=== PATIENT | female | born 1995 | race African-American/Black ===

== ENCOUNTER 2017-05-25 09:36 | Emergency (ER) | payer MEDICAID ==
[~2017-05-25] VITALS: Ht 160 cm; Wt 55.3 kg
[2017-05-25 09:38] VITALS: BP 114/73
--- NOTE | 2017-05-25 10:17 | Emergency Room Report ---
History of Present Illness General Chief Complaint: General Complaint Source: Patient Present Illness HPI Patient presents with complaints of pressure to the left fore head area patient reports that last week she had gone on a hike After that she felt that she had a headache the headache however improved and resolved however she felt some pressure lingering in the left fore head also the left parietal area Denies any focal weakness denies any vomiting denies any neck pain denies any chest pain or shortness of breath denies any new medication patient has seen an shopper's aide yesterday And also saw his primary physician last week she also has blood test obtained and waiting for results on Sunday Allergies: Coded Allergies: NO KNOWN ALLERGIES (Unverified Allergy, Unknown, 04/24/15) Patient History Past Medical History: see triage record Pertinent Family History: none Now: No Reviewed Nursing Documentation: PMH: Agreed, PSxH: Agreed Nursing Documentation-PMH Past Medical History: No Stated History Hx Neurological Problems: Yes - Eczema Review of Systems All Other Systems: negative except mentioned in HPI Physical Exam Vital Signs Date Time Temp Pulse Resp B/P (MAP) Pulse Ox O2 Delivery O2 Flow Rate FiO2 05/25/17 09:38 97.3 83 20 114/73 99 Room Air Sp02 EP Interpretation: reviewed, normal General Appearance: well appearing, no apparent distress Head: normocephalic, atraumatic Eyes: bilateral eye PERRL, bilateral eye EOMI ENT: hearing grossly normal, normal pharynx, TMs + canals normal, uvula midline Neck: full range of motion, supple, no meningismus, no bony tend Respiratory: lungs clear, normal breath sounds, no rhonchi, no respiratory distress, no retraction, no accessory muscle use Cardiovascular #1: normal peripheral pulses, regular rate, rhythm, no edema, no gallop, no JVD, no murmur Gastrointestinal: normal bowel sounds, non tender, soft, no mass, no organomegaly, non-distended, no guarding, no hernia, no pulsatile mass, no rebound Genitourinary: no CVA tenderness Musculoskeletal: normal inspection Neurologic: oriented x3, responsive, 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 nml as tested, motor strength/ tone normal, sensory intact Psychiatric: mood/affect normal Skin: normal color, no rash, warm/dry, palpation normal Lymphatic: normal inspection, no adenopathy Medical Decision Making Diagnostic Impression: Primary Impression: Headache ER Course Multiple differentials considered Including but not limited to neurological, neurosurgical infectious pathology patient has a benign neurological exam Does not meet criteria for emergency CT imaging At this time patient has follow up with primary physician and will return with any changes , Last Vital Signs Date Time Temp Pulse Resp B/P (MAP) Pulse Ox O2 Delivery O2 Flow Rate FiO2 05/25/17 09:38 97.3 83 20 114/73 99 Room Air Status: unchanged Disposition: HOME, SELF-CARE Condition: Stable Additional Instructions: Patient is provided with the discharge instructions notified to follow up with primary doctor in the next 2-3 days otherwise return to the er with any worsening symptoms. Please note that this report is being documented using [employer] technology. This can lead to erroneous entry secondary to incorrect interpretation by the dictating instrument. MIKE AGUSTIN D.O. May 25, 2017 10:17
[2017-05-25 10:20] VITALS: BP 114/73
== END 2017-05-25 10:20 | disposition home or self-care (01) ==
LOC: EMR 10:10
DX: R51 Headache (principal); L30.9 Dermatitis, unspecified
CPT/HCPCS: 99282

== ENCOUNTER 2018-01-08 14:09 | Emergency (ER) | payer OTHER, MEDICAID ==
[~2018-01-08] VITALS: Ht 160 cm; Wt 54.4 kg
[2018-01-08] MEDS ORDERED: Excedrin Migraine tab ORAL ONE (14:45)
[2018-01-08] MEDS ORDERED: Metoclopramide 10mg/10ml Liq ORAL ONE (14:45)
[2018-01-08 15:20] LABS: APPEARANCE,URINE CLEAR; BILIRUBIN, URINE NEGATIVE (NEGATIVE); COLOR,URINE PALE YELLOW; GLUCOSE, URINE (UA) NEGATIVE (NEGATIVE); KETONES,URINE NEGATIVE (NEGATIVE); LEUKOCYTE ESTERASE ,URINE 2+ (NEGATIVE); NITRITE,URINE NEGATIVE (NEGATIVE); PH,URINE 8 (4.5-8.0); PROTEIN,URINE NEGATIVE (NEGATIVE); UROBILINOGEN,URINE NORMAL MG/DL (0.0-1.0)
[2018-01-08 15:48] VITALS: BP 107/73
--- NOTE | 2018-01-08 15:55 | Emergency Room Report ---
History of Present Illness General Chief Complaint: Headache Source: Patient Present Illness HPI 22-year-old female presents to the emergency department complaining of 5 out of 10 in severity left-sided dull headache 5 days. Patient denies history of migraines however she reports she has had one or 2 long-lasting headaches in the past and states that migraines run in her family knee and has been diagnosed in her mother as well as her older sister. Denies recent head injury denies nausea, vomiting, sudden onset, neck pain or stiffness, photophobia, or hyperacusis. Patient denies , urinary urgency, frequency or hematuria. Patient denies dysuria. Denies dizziness, LOC or syncope. Pt reports x 2 days having tight cramping in the left side of her neck/shoulder. Pt reports looking down typing a lot lately. denies trauma or fall. Allergies: Coded Allergies: NO KNOWN ALLERGIES (Unverified Allergy, Unknown, 04/24/15) Patient History Past Medical History: see triage record Past Surgical History: none Pertinent Family History: none Last Menstrual Period: 12/19/17 Reviewed Nursing Documentation: PMH: Agreed; PSxH: Agreed Nursing Documentation-PMH Past Medical History: No Stated History Hx Neurological Problems: Yes - Eczema Review of Systems All Other Systems: negative except mentioned in HPI Physical Exam Vital Signs Date Time Temp Pulse Resp B/P (MAP) Pulse Ox O2 Delivery O2 Flow Rate FiO2 01/08/18 14:14 98.1 89 18 109/75 96 Room Air 98.1 Sp02 EP Interpretation: reviewed, normal General Appearance: no apparent distress, alert, GCS 15, non-toxic Head: normocephalic, atraumatic Eyes: bilateral eye normal inspection, bilateral eye PERRL ENT: hearing grossly normal, normal voice Neck: full range of motion, no meningismus, no bony tend Respiratory: chest non-tender, lungs clear, normal breath sounds, speaking full sentences Cardiovascular #1: regular rate, rhythm Genitourinary: normal inspection, no CVA tenderness Musculoskeletal: back normal, gait/station normal, normal range of motion, non- tender Neurologic: alert, oriented x3, responsive, motor strength/tone normal, sensory intact, normal gait, speech normal, grossly normal Psychiatric: judgement/insight normal Skin: normal color, no rash, warm/dry, well hydrated Lymphatic: no adenopathy Medical Decision Making PA Attestation Dr. Wilcox is my supervising Physician whom patient management has been discussed with. Diagnostic Impression: Primary Impression: Headache Qualified Codes: R51 - Headache ER Course 22-year-old female presents to the emergency department complaining of 5 out of 10 in severity left-sided dull headache 5 days. Patient denies history of migraines however she reports she has had one or 2 long-lasting headaches in the past and states that migraines run in her family knee and has been diagnosed in her mother as well as her older sister. Denies recent head injury denies nausea, vomiting, sudden onset, neck pain or stiffness, photophobia, or hyperacusis. Patient denies , urinary urgency, frequency or hematuria. Patient denies dysuria. Denies dizziness, LOC or syncope. Pt reports x 2 days having tight cramping in the left side of her neck/shoulder. Pt reports looking down typing a lot lately. denies trauma or fall. Ddx considered but are not limited to migraine, SAH, Pseudomotor Cerebri,, Mass lesion, Cluster ZAYAS, Tension ZAYAS, Post lumbar puncture ZAYAS. Vital signs: are WNL, pt. is afebrile H&PE are most consistent with migraine headache. and Muscle strain of the left trapezius. NAD, non-toxic in effect. ORDERS: - none required at this time, dx is clinical. ED INTERVENTIONS: - Reglan PO -Excedrin migraine --pt. reports ZAYAS has improved to a 1-2/10 in severity. DISCHARGE: At this time pt. is stable for d/c to home. Will provide printed patient care instructions, and any necessary prescriptions. Care plan and follow up instructions have been discussed with the patient prior to discharge. Labs Test 01/08/18 14:45 Urine Color Pale yellow Urine Appearance Clear Urine pH 8 (4.5-8.0) Urine Specific [place] 1.015 (1.005-1.035) Urine Protein Negative (NEGATIVE) Urine Glucose (UA) Negative (NEGATIVE) Urine Ketones Negative (NEGATIVE) Urine Blood Negative (NEGATIVE) Urine Nitrite Negative (NEGATIVE) Urine Bilirubin Negative (NEGATIVE) Urine Urobilinogen Normal MG/DL (0.0-1.0) Urine Leukocyte Esterase 2+ (NEGATIVE) Urine RBC 0-2 /HPF (0 - 2) Urine WBC 5-10 /HPF (0 - 2) Urine Squamous Epithelial Cells Moderate /LPF (NONE/OCC) Urine Bacteria Few /HPF (NONE) Urine HCG, Qualitative Negative (NEGATIVE) Last Vital Signs Date Time Temp Pulse Resp B/P (MAP) Pulse Ox O2 Delivery O2 Flow Rate FiO2 01/08/18 15:48 98.1 71 18 107/73 96 Room Air 98.1 Disposition: HOME, SELF-CARE Condition: Stable Scripts Methocarbamol* (ROBAXIN-750*) 750 Mg Tablet 750 MG PO TID, #21 TAB 0 Refills Prov: Kirsty Stoll 01/08/18 Aspirin/Acetaminophen/Caffeine (EXCEDRIN MIGRAINE GELTAB) 1 Each Tablet 1 EACH PO Q6HR, #30 TAB Prov: Kirsty Stoll 01/08/18 Metoclopramide Hcl* (REGLAN*) 10 Mg Tablet 10 MG ORAL THREE TIMES A DAY PRN for For Headache, #21 TAB Prov: Kirsty Stoll 01/08/18 Referrals: NON PHYSICIAN (PCP) Patient Instructions: Migraine Headache Additional Instructions: Take medications as directed. Follow up with a Primary Care Provider for Neurology referral in 3-5 days, even if your symptoms have resolved. --Please review list of primary care clinics, if you do not already have a primary care provider Return sooner to ED if new symptoms occur, or current symptoms become worse. Do not drink alcohol, drive, or operate heavy machinery while taking Robaxin as this may cause drowsiness. - Please note that this Emergency Department Report was dictated using [employer] technology software, occasionally this can lead to erroneous entry secondary to interpretation by the dictation equipment. Kirsty Stoll Jan 08, 2018 15:55
[2018-01-08] MEDS ORDERED: REGLAN10 MG ORAL (15:57)
[2018-01-08] MEDS ORDERED: EXCEDRIN MIGRA1 EACH PO (15:57)
[2018-01-08] MEDS ORDERED: ROBAXIN-750750 MG PO (15:57)
[2018-01-08 16:13] VITALS: BP 107/73
== END 2018-01-08 16:16 | disposition home or self-care (01) ==
LOC: EMR 14:28
DX: R51 Headache (principal)
CPT/HCPCS: 81003; 81025; 99283

== ENCOUNTER 2019-01-15 09:00 | Emergency (ER) | payer OTHER, MEDICAID ==
[~2019-01-15] VITALS: Ht 160 cm; Wt 57.2 kg
[~2019-01-15 09:00] MED LIST: EXCEDRIN MIGRA1 EACH PO; REGLAN10 MG ORAL; ROBAXIN-750750 MG PO
[2019-01-15 09:02] VITALS: BP 105/62
--- NOTE | 2019-01-15 09:10 | NUR ---
ED Nurse Note: patient walked into ED from home c/o stomach pain generalized, mostly in the middle, cramping and burning,7/10 for 2 days. patient reports nausea, vomiting and diarrhea since yesterday. patient is alert awake x4 ambulatory steady gait, breathing unlabored and even, speaking in full sentences.
[2019-01-15] MEDS ORDERED: Mylanta II UD 30ml ORAL ONE (09:30)
[2019-01-15] MEDS ORDERED: Dicyclomine HCl 10mg/5ml oral soln ORAL ONE (09:30)
[2019-01-15] MEDS ORDERED: Lidocaine 2% Visc 15ml soln ORAL ONE (09:30)
[2019-01-15 09:35] LABS: APPEARANCE,URINE CLEAR; BILIRUBIN, URINE NEGATIVE (NEGATIVE); GLUCOSE, URINE (UA) NEGATIVE (NEGATIVE); KETONES,URINE 4+ (NEGATIVE); LEUKOCYTE ESTERASE ,URINE 2+ (NEGATIVE); NITRITE,URINE NEGATIVE (NEGATIVE); PH,URINE 8 (4.5-8.0); PROTEIN,URINE NEGATIVE (NEGATIVE); UROBILINOGEN,URINE NORMAL MG/DL (0.0-1.0)
[2019-01-15 09:37] LABS: COLOR,URINE YELLOW
[2019-01-15 09:38] LABS: BASOPHILS % (AUTO) 0.7 % (0.0-2.0); HEMATOCRIT 41.5 % (37.0-47.0); HEMOGLOBIN 13.8 G/DL (12.0-16.0); MEAN CORPUSCULAR VOLUME 83 FL (80-99); NEUTROPHILS % (AUTO) 80.3 % (45.0-75.0); PLATELET COUNT 254 K/UL (150-450); RED BLOOD COUNT 4.99 M/UL (4.20-5.40); RED CELL DISTRIBUTION WIDTH 11.5 % (11.6-14.8); WHITE BLOOD COUNT 4.9 K/UL (4.8-10.8)
[2019-01-15 09:44] LABS: ANION GAP 11 mmol/L (5-15); BLOOD UREA NITROGEN 15 mg/dL (7-18); CALCIUM 9.3 MG/DL (8.5-10.1); CARBON DIOXIDE 25 MMOL/L (21-32); CHLORIDE 104 MMOL/L (98-107); CREATININE 0.8 MG/DL (0.55-1.30); POTASSIUM 3.4 MMOL/L (3.5-5.1); SODIUM 140 MMOL/L (136-145)
[2019-01-15 09:54] LABS: ALANINE AMINOTRANSFERASE 12 U/L (12-78); ALBUMIN 4.3 G/DL (3.4-5.0); ALBUMIN/GLOBULIN RATIO 1.1 (1.0-2.7); ALKALINE PHOSPHATASE 65 U/L (46-116); ASPARTATE AMINO TRANSFERASE 15 U/L (15-37); BILIRUBIN,TOTAL 1.1 MG/DL (0.2-1.0)
[2019-01-15 09:59] LABS: BILIRUBIN,DIRECT 0.2 MG/DL (0.0-0.3)
[2019-01-15] MEDS ORDERED: ONDANSETRON ODT4 MG BC (10:22)
[2019-01-15] MEDS ORDERED: DICYCLOMINE HCL10 MG ORAL (10:22)
[2019-01-15] MEDS ORDERED: RANITIDINE HCL150 MG ORAL (10:22)
[2019-01-15 10:25] VITALS: BP 105/62
--- NOTE | 2019-01-15 10:25 | NUR ---
ER DISCHARGE NOTE: Patient is cleared to be discharged per ERMD DR CRESPO, pt is aox4, on room air, with stable vital signs. pt was given dc and prescription instructions, pt was able to verbalize understanding, pt id band and iv site removed without complications. pt is able to ambulate with steady gait. pt took all belongings.
--- NOTE | 2019-01-15 11:04 | Emergency Room Report ---
History of Present Illness General Chief Complaint: Abdominal Pain Source: Patient Present Illness HPI 23-year-old female presents ED for evaluation. Complaining of abdominal pain with nausea and cramping. Started this morning. burning, epigastric, 7 out of 10, nonradiating. Notes nausea, denies vomiting. States in the previous few days she had some diarrhea but none at this time. Denies recent travel or recent antibiotic use. No other aggravating relieving factors. Denies any other associated symptoms Allergies: Coded Allergies: NO KNOWN ALLERGIES (Unverified Allergy, Unknown, 04/24/15) Patient History Past Medical History: other - eczema Past Surgical History: none Pertinent Family History: none Social History: Denies: smoking, alcohol use, drug use Last Menstrual Period: 12/31/18 Now: No Immunizations: UTD Reviewed Nursing Documentation: PMH: Agreed; PSxH: Agreed Nursing Documentation-PMH Past Medical History: No Stated History Hx Neurological Problems: Yes - Eczema Review of Systems All Other Systems: negative except mentioned in HPI Physical Exam Vital Signs Date Time Temp Pulse Resp B/P (MAP) Pulse Ox O2 Delivery O2 Flow Rate FiO2 01/15/19 09:02 98.1 72 16 105/62 98 Room Air Sp02 EP Interpretation: reviewed, normal General Appearance: no apparent distress, alert, GCS 15, non-toxic Head: normocephalic, atraumatic Eyes: bilateral eye normal inspection, bilateral eye PERRL ENT: hearing grossly normal, normal pharynx, no angioedema, normal voice Neck: full range of motion, supple/symm/no masses Respiratory: chest non-tender, lungs clear, normal breath sounds, speaking full sentences Cardiovascular #1: regular rate, rhythm, no edema Cardiovascular #2: 2+ carotid (R), 2+ carotid (L), 2+ radial (R), 2+ radial (L) , 2+ dorsalis pedis (R), 2+ dorsalis pedis (L) Gastrointestinal: normal bowel sounds, soft, non-distended, no guarding, no rebound, tenderness - epigastric Rectal: deferred Genitourinary: normal inspection, no CVA tenderness Musculoskeletal: back normal, gait/station normal, normal range of motion, non- tender Neurologic: alert, oriented x3, responsive, motor strength/tone normal, sensory intact, speech normal Psychiatric: judgement/insight normal, memory normal, mood/affect normal, no suicidal/homicidal ideation Reflexes: 3+ bicep (R), 3+ bicep (L), 3+ tricep (R), 3+ tricep (L), 3+ knee (R) , 3+ knee (L) Lymphatic: no adenopathy Medical Decision Making Diagnostic Impression: Primary Impression: Gastroenteritis ER Course Hospital Course 23-year-old F presents to ED with epigastric pain with nausea, reported diarhrea differential diagnosis: gastritis, SBO, cholecystits, gastroenteritis Clinical course Patient placed on stretcher. On wind up operator. After initial history and physical I ordered labs, IV fluids, pepcid, GI cocktail Labs - no leukocytosis, electrolytes ok, LFTs normal, UA unremarkable On reassessment patient states she feels better. I discussed findings with patient. Will discharge to home with Ricki Sanchezyl. States she has a PMD I feel this is a highly complex case requiring extensive working including EKG/ Rhythm strip, Xray/CT/US, Blood/urine lab work, repeat exams while in ED, and administration of strong opiates/narcotics for pain control, admission to hospital or close patient follow up. Diagnosis - gastroenteritis Stable and discharged to home with prescriptions for Zantac, bentyl, zofran. Followup with PMD. Return to ED if symptoms recur or worsen Labs Test 01/15/19 09:21 White Blood Count 4.9 K/UL (4.8-10.8) Red Blood Count 4.99 M/UL (4.20-5.40) Hemoglobin 13.8 G/DL (12.0-16.0) Hematocrit 41.5 % (37.0-47.0) Mean Corpuscular Volume 83 FL (80-99) Mean Corpuscular Hemoglobin 27.6 PG (27.0-31.0) Mean Corpuscular Hemoglobin Concent 33.1 G/DL (32.0-36.0) Red Cell Distribution Width 11.5 % (11.6-14.8) Platelet Count 254 K/UL (150-450) Mean Platelet Volume 6.6 FL (6.5-10.1) Neutrophils (%) (Auto) 80.3 % (45.0-75.0) Lymphocytes (%) (Auto) 16.0 % (20.0-45.0) Monocytes (%) (Auto) 3.0 % (1.0-10.0) Eosinophils (%) (Auto) 0.0 % (0.0-3.0) Basophils (%) (Auto) 0.7 % (0.0-2.0) Urine Color Yellow Urine Appearance Clear Urine pH 8 (4.5-8.0) Urine Specific [place] 1.010 (1.005-1.035) Urine Protein Negative (NEGATIVE) Urine Glucose (UA) Negative (NEGATIVE) Urine Ketones 4+ (NEGATIVE) Urine Blood Negative (NEGATIVE) Urine Nitrite Negative (NEGATIVE) Urine Bilirubin Negative (NEGATIVE) Urine Urobilinogen Normal MG/DL (0.0-1.0) Urine Leukocyte Esterase 2+ (NEGATIVE) Urine RBC 0-2 /HPF (0 - 2) Urine WBC 2-4 /HPF (0 - 2) Urine Squamous Epithelial Cells Occasional /LPF Urine Bacteria Few /HPF (NONE) Urine HCG, Qualitative Negative (NEGATIVE) Sodium Level 140 MMOL/L (136-145) Potassium Level 3.4 MMOL/L (3.5-5.1) Chloride Level 104 MMOL/L (98-107) Carbon Dioxide Level 25 MMOL/L (21-32) Anion Gap 11 mmol/L (5-15) Blood Urea Nitrogen 15 mg/dL (7-18) Creatinine 0.8 MG/DL (0.55-1.30) Estimat Glomerular Filtration Rate > 60 mL/min (>60) Glucose Level 95 MG/DL (74-106) Calcium Level 9.3 MG/DL (8.5-10.1) Total Bilirubin 1.1 MG/DL (0.2-1.0) Direct Bilirubin 0.2 MG/DL (0.0-0.3) Aspartate Amino Transf (AST/SGOT) 15 U/L (15-37) Alanine Aminotransferase (ALT/SGPT) 12 U/L (12-78) Alkaline Phosphatase 65 U/L (46-116) Total Protein 8.1 G/DL (6.4-8.2) Albumin 4.3 G/DL (3.4-5.0) Globulin 3.8 g/dL Albumin/Globulin Ratio 1.1 (1.0-2.7) Lipase 85 U/L (73-393) Last Vital Signs Date Time Temp Pulse Resp B/P (MAP) Pulse Ox O2 Delivery O2 Flow Rate FiO2 01/15/19 10:25 98.1 17 105/62 98 Room Air 01/15/19 09:38 76 Status: improved Disposition: HOME, SELF-CARE Condition: Stable Scripts Dicyclomine Hcl* (DICYCLOMINE HCL*) 10 Mg Capsule 10 MG ORAL QID, #20 CAP Prov: Trell Cooper MD 01/15/19 Ondansetron Odt* (ZOFRAN ODT*) 4 Mg Tab.rapdis 4 MG BC EVERY 6 HOURS PRN for Nausea & Vomiting, #20 TAB 0 Refills Prov: Trell Cooper MD 01/15/19 Ranitidine Hcl* (ZANTAC*) 150 Mg Tablet 150 MG ORAL TWICE A DAY, #30 TAB Prov: Trell Cooper MD 01/15/19 Referrals: NON PHYSICIAN (PCP) Renata [facility] Patient Instructions: Viral Gastroenteritis, Adult, [id number] Trell Cooper MD Jan 15, 2019 11:04
== END 2019-01-15 10:30 | disposition home or self-care (01) ==
LOC: EMR 09:36
DX: K52.9 Noninfective gastroenteritis and colitis, unspecified (principal)
CPT/HCPCS: 36415; 80053; 81003; 81025; 82248; 83690; 85025; 96374; 96375; 99284; J2405; J7040; S0028